=== PATIENT | female | born 1985 | race Asian ===

== ENCOUNTER 2017-11-27 20:03 | Inpatient (IN) | payer BC, MEDICAID ==
[~2017-11-27 20:03] MED LIST: Lidocaine 2% PF 5 ML VIAL ONE
[2017-11-27] MEDS ORDERED: HYDROcodone/Acetaminophen 5/325 mg Tablet PO PRN (20:13)
[2017-11-27] MEDS ORDERED: Acetaminophen/Codeine 30-300mg Tablet PO PRN (20:13)
[2017-11-27] MEDS ORDERED: Promethazine HCl 25 MG/ML VIAL IM PRN (20:13)
[2017-11-27] MEDS ORDERED: LR 500 ML/Oxytocin 10 units 500 ML IV SCH ×2 (20:13)
[2017-11-27] MEDS ORDERED: Misoprostol 200 MCG TAB PR PRN (20:13)
[2017-11-27] MEDS ORDERED: Lidocaine 1% (PF) 30 ML VIAL SC PRN (20:13)
[2017-11-27] MEDS ORDERED: Acetaminophen 500 MG TAB PO PRN (20:13)
[2017-11-27] MEDS ORDERED: Zolpidem Tartrate 5 MG TAB PO PRN (20:13)
[2017-11-27] MEDS ORDERED: Ibuprofen 800 MG TAB PO PRN (20:13)
[2017-11-27] MEDS ORDERED: Ondansetron HCl/PF 4 MG/2 ML Vial IVP PRN (20:13)
[2017-11-27] MEDS: Lactated Ringer's 1,000 ML IV SCH (20:40)
[2017-11-27 20:50] VITALS: BMI 24.4
[2017-11-27 21:16] LABS: Hemoglobin 12.7 g/dL (12.0-16.0); Mean Corpuscular HGB CONC 34.1 g/dL (32.0-36.0); Mean Corpuscular Hemoglobin 33.4 pg (27.0-31.0); Mean Corpuscular Volume 98.1 fl (81.0-99.0); Mean Platelet Volume 7.1 fL (7.4-10.4); Platelet Count 215 thou/uL (130-400); RBC Distribution Width 11.9 % (11.5-14.5); Red Blood Cell (RBC) Count 3.79 mill/uL (4.20-5.40); White Blood Cell (WBC) Count 7.3 thou/uL (4.8-10.8)
[2017-11-27] MEDS: Misoprostol 100 MCG TAB VAG SCH (21:33)
[2017-11-27 21:49] LABS: Syphilis Antibody Nonreactive (Nonreactive); Syphilis Antibody Index 0.37 S/CO (<1.00 Non-Reactive)
[2017-11-27 23:31] LABS: HBSAg Index 0.15 S/CO (0-0.99); Hep B Surf Ag Non-Reactive S/CO (NonReactive)
[2017-11-28] MEDS: Misoprostol 100 MCG TAB VAG SCH ×3 (01:39→13:45)
[2017-11-28] MEDS: Lactated Ringer's 1,000 ML IV SCH (04:42)
[2017-11-28] MEDS ORDERED: Fentanyl 4 mcg/Marc 0.1% Cadd 100 ML ONE (07:28)
[2017-11-28] MEDS ORDERED: Naloxone HCl 0.4 mg/ml Vial IVP PRN ×2 (08:06)
[2017-11-28] MEDS ORDERED: Eucerin (Mineral Oil/Petrolatum,White) 30 gm Jar TOP PRN (08:06)
[2017-11-28] MEDS ORDERED: Promethazine HCl 25 MG/ML VIAL IM PRN (08:06)
[2017-11-28] MEDS ORDERED: Ondansetron HCl/PF 4 MG/2 ML Vial IVP PRN ×2 (08:06→11:15)
[2017-11-28] MEDS ORDERED: ePHEDrine/0.9% NaCl/PF SYRINGE 50 mg/10 ml SLOW IVP PRN (08:06)
[2017-11-28] MEDS ORDERED: Lactated Ringer's 500 ML IV PRN (08:06)
[2017-11-28] MEDS ORDERED: diphenhydrAMINE 50 MG/ML VIAL IVP PRN (08:06)
[2017-11-28] MEDS ORDERED: Acetaminophen 325 MG TAB PO PRN (08:06)
[2017-11-28] MEDS ORDERED: Communication Order-Pharmacy FS SCH (08:15)
[2017-11-28] MEDS ORDERED: Fentanyl 4mcg/Marcaine 0.1% Cassette 100 ML EPIDURAL SCH (08:15)
[2017-11-28] MEDS: LR / Pitocin 40 units/1000 ml 1,000 ML IV PRN ×2 (08:21→10:00)
[2017-11-28] MEDS ORDERED: LR / Pitocin 40 units/1000 ml 1,000 ML IV SCH (11:15)
[2017-11-28] MEDS ORDERED: Lanolin Ointment 7 GM TUBE TOP PRN (11:15)
[2017-11-28] MEDS ORDERED: Milk Of Magnesia 30 ML UDCUP PO PRN (11:15)
[2017-11-28] MEDS ORDERED: Benzocaine/Menthol 20-0.5% 60 ML CAN TOP PRN (11:15)
[2017-11-28] MEDS ORDERED: Adacel (T-DAP) 0.5 ML VIAL IM ONE (11:15)
[2017-11-28] MEDS ORDERED: Bisacodyl 10 MG SUPP PR PRN (11:15)
[2017-11-28] MEDS: Ferrous Sulfate 325 MG TAB PO SCH ×2 (13:43→18:16)
[2017-11-28] MEDS: Prenatal Vitamin 1 TAB PO SCH (13:43)
[2017-11-28] MEDS: Docusate Calcium (SURFAK) 240 MG CAP PO SCH ×2 (13:43→20:54)
[2017-11-28] MEDS: Ibuprofen 800 MG TAB PO SCH ×2 (13:53→20:54)
[2017-11-29] MEDS: Ibuprofen 800 MG TAB PO SCH ×3 (04:50→22:33)
[2017-11-29] MEDS: Ferrous Sulfate 325 MG TAB PO SCH ×2 (08:53→18:16)
[2017-11-29] MEDS: Prenatal Vitamin 1 TAB PO SCH (08:53)
[2017-11-29] MEDS: Docusate Calcium (SURFAK) 240 MG CAP PO SCH ×2 (08:53→22:33)
[2017-11-29] MEDS ORDERED: HYDROcodone/Acetaminophen 5/325 mg Tablet PO PRN (11:15)
[2017-11-29] MEDS ORDERED: Acetaminophen/Codeine 30-300mg Tablet PO PRN (11:15)
[2017-11-30] MEDS: Ibuprofen 800 MG TAB PO SCH (06:06)
[2017-11-30] MEDS: Ferrous Sulfate 325 MG TAB PO SCH (08:49)
[2017-11-30] MEDS: Docusate Calcium (SURFAK) 240 MG CAP PO SCH (08:49)
[2017-11-30] MEDS: Prenatal Vitamin 1 TAB PO SCH (08:49)
[2017-11-30 09:10] VITALS: BP 109/61; TEMP 98.9
== END 2017-11-30 11:08 | disposition home or self-care (01) | DRG 775 ==
LOC: L&D 20:03 → 3SW 11-28 11:38
PROVIDERS: ADMIT Family Medicine; ATTEND Family Medicine
PROC: 3E0P7VZ Introduction of Hormone into Female Reproductive, Via Natural or Artificial Opening (ICD-10-PCS; 2017-11-27)
PROC: 3E033VJ Introduction of Other Hormone into Peripheral Vein, Percutaneous Approach (ICD-10-PCS; 2017-11-27)
PROC: 10D07Z6 Extraction of Products of Conception, Vacuum, Via Natural or Artificial Opening (ICD-10-PCS; principal; 2017-11-28)
PROC: 0KQM0ZZ Repair Perineum Muscle, Open Approach (ICD-10-PCS; 2017-11-28)
PROC: 10907ZC Drainage of Amniotic Fluid, Therapeutic from Products of Conception, Via Natural or Artificial Opening (ICD-10-PCS; 2017-11-28)
DX: O24.420 Gestational diabetes mellitus in childbirth, diet controlled (principal); O70.1 Second degree perineal laceration during delivery; O76 Abnormality in fetal heart rate and rhythm complicating labor and delivery; Z37.0 Single live birth; Z3A.39 39 weeks gestation of pregnancy
CPT/HCPCS: 36415; 51702; 85027; 86780; 87340; 90715; J2001; J7120

== ENCOUNTER 2019-05-29 13:29 | Outpatient (CLI) | payer BC ==
--- NOTE | 2019-05-29 14:18 | ULT ---
US Pelvic W Doppler History: Abnormal uterine bleeding Comparison: None. Findings: Real-time grayscale, color, and spectral analysis of the pelvis performed transabdominal ap proach. Uterus is normal measuring 8.5 x 3.8 x 5.3 cm. Endometrial thickness is 9 mm, normal. Right ovary measures 3.4 x 1.8 x 3.1 cm in the left ovary measures 2.8 x 1.8 x 1.9 cm. No adnexal mas s. Adequate vascular flow to both ovaries. Impression: Normal pelvic ultrasound.
== END 2019-05-29 13:30 | disposition home or self-care (01) ==
LOC: BICULT 13:29
PROVIDERS: ATTEND Physician Assistant
DX: N93.9 Abnormal uterine and vaginal bleeding, unspecified (principal)
CPT/HCPCS: 76856; 93976